=== PATIENT | female | born 1975 | race African-American/Black ===

== ENCOUNTER 2017-04-24 15:44 | Observation (INO) ==
[2017-04-24] MEDS ORDERED: SODIUM CHLORIDE 0.9% 250 ML IV PRN (16:31)
[2017-04-24 17:03] LABS: Basophils # 0.1 10*3/uL (0.0-0.2); Basophils % 0.8 % (0.0-0.8); Eosinophils # 0.1 10*3/uL (0.0-0.87); Eosinophils % 1.2 % (0.00-10.9); Hematocrit 22.9 VOL% (35.7-47.0); Immature Granulocytes % 0.5 %; Immature Granulocytes Absolute 0.04 #; Lymphocytes # 2.6 10*3/uL (1.4-4.0); Lymphocytes % 29.9 % (21.3-54.2); Mean Corpuscular HGB Conc 27.9 GM/DL (32-36); Mean Corpuscular Hemoglobin 20 PG (27-34); Mean Corpuscular Volume 71.8 FL (87-102); Mean Platelet Volume 11.6 FL (9.6-12.0); Monocytes # 0.4 10*3/uL (0.11-0.8); Monocytes % 5.1 % (1.7-12.7); Neutrophils # 5.4 10*3/uL (1.4-7.4); Neutrophils % 62.5 % (38.7-73.9); Platelet Count 448 T/CUMM (130-400); Red Blood Count 3.19 MC/CUMM (3.8-5.5); Red Cell Distribution Width 18.8 % (9.3-17.3); White Blood Count 8.7 T/CUMM (4-12)
[2017-04-24 17:09] LABS: Hemoglobin 6.4 GM/DL (12.0-16.0)
[2017-04-24] MEDS ORDERED: INFLUENZA VIRUS VACCINE 0.5 ML SYRINGE IM ONE (17:11)
[2017-04-24 17:21] LABS: Alanine Aminotransferase 19 U/L (13-56); Albumin 3.5 G/DL (3.4-5.0); Alkaline Phosphatase 76 U/L (45-117); Aspartate Amino Transferase 16 U/L (0-37); Bilirubin,Total < 0.39 MG/DL (0.2-1.0); Blood Urea Nitrogen 8 MG/DL (7-18); Calcium 8.8 MG/DL (8.5-10.1); Glucose 119 MG/DL (74-106); Osmolality,Calculated 279.3 MOS/KG (273-304); Sodium 141 MMOL/L (136-145)
[2017-04-24] MEDS: SODIUM CHLORIDE 0.9% 1,000 ML IV SCH (17:25)
[2017-04-24] MEDS ORDERED: DEXTROSE 5% LACTATED RINGERS 1,000 ML IV SCH (21:00)
[2017-04-25 04:11] LABS: Basophils # 0.1 10*3/uL (0.0-0.2); Basophils % 0.9 % (0.0-0.8); Eosinophils # 0.1 10*3/uL (0.0-0.87); Eosinophils % 1.5 % (0.00-10.9); Hematocrit 27.2 VOL% (35.7-47.0); Hemoglobin 8.2 GM/DL (12.0-16.0); Immature Granulocytes % 0.3 %; Immature Granulocytes Absolute 0.03 #; Lymphocytes # 3.2 10*3/uL (1.4-4.0); Lymphocytes % 33.8 % (21.3-54.2); Mean Corpuscular HGB Conc 30.1 GM/DL (32-36); Mean Corpuscular Hemoglobin 23 PG (27-34); Mean Corpuscular Volume 76.2 FL (87-102); Mean Platelet Volume 11.6 FL (9.6-12.0); Monocytes # 0.6 10*3/uL (0.11-0.8); Monocytes % 6.1 % (1.7-12.7); Neutrophils # 5.4 10*3/uL (1.4-7.4); Neutrophils % 57.4 % (38.7-73.9); Platelet Count 385 T/CUMM (130-400); Red Blood Count 3.57 MC/CUMM (3.8-5.5); Red Cell Distribution Width 18.3 % (9.3-17.3); White Blood Count 9.4 T/CUMM (4-12)
[2017-04-25] MEDS: SODIUM CHLORIDE 0.9% 1,000 ML IV SCH (05:33)
--- NOTE | 2017-04-25 06:31 | History and Physical Update ---
History and Physical Update - History and Physical H&P was reviewed, the patient examined and there: are no changes in the patients condition since last H&P was completed. - Dictation Physical: refer to scanned H&P - Physical Exam Mental Status: alert and oriented Heart: regular rate and rhythm Lung: clear to auscultation Abdomen: within normal limits Vitals: within normal limits
[2017-04-25] MEDS ORDERED: TISSUE ADHESIVE 1 EACH APPLICATOR TOP ONE (06:38)
[2017-04-25] MEDS: LACTATED RINGERS 1,000 ML IV SCH ×3 (07:22→17:15)
[2017-04-25] MEDS ORDERED: GLYCOPYRROLATE 0.4 MG/2 ML VIAL ONE (07:24)
[2017-04-25] MEDS ORDERED: NEOSTIGMINE 10 MG/10 ML VIAL ONE (07:24)
[2017-04-25] MEDS ORDERED: ROCURONIUM 100 MG/10 ML VIAL IV ONE (07:24)
[2017-04-25] MEDS ORDERED: DEXAMETHASONE 10 MG/1 ML VIAL ONE (07:24)
[2017-04-25] MEDS ORDERED: ONDANSETRON 4 MG/2 ML VIAL ONE (07:24)
[2017-04-25] MEDS ORDERED: LIDOCAINE 2% 5 ML VIAL ONE (07:24)
[2017-04-25] MEDS ORDERED: PROPOFOL 200 MG/20 ML VIAL IV ONE (07:24)
[2017-04-25] MEDS ORDERED: METOPROLOL TARTRATE 5 MG/5 ML VIAL IV ONE (07:24)
[2017-04-25] MEDS ORDERED: SUCCINYLCHOLINE 200 MG/10 ML VIAL ONE (07:24)
[2017-04-25] MEDS ORDERED: FAMOTIDINE 20 MG/2 ML VIAL IV ONE (07:31)
[2017-04-25] MEDS: FERROUS SULFATE 325 MG TABLET PO SCH ×2 (09:00→19:45)
[2017-04-25] MEDS ORDERED: GABAPENTIN 300 MG CAPSULE PO SCH (09:00)
[2017-04-25 09:33] LABS: Apearance,Urine CLEAR (Clear); Bilirubin,Urine Negative (Negative); Blood, Urine Negative (Negative); Glucose,Urine (UA) Negative (Negative); Ketones,Urine Negative (Negative); Mucus,Urine Occasional /LPF (Occasional); Nitrite,Urine Negative (Negative); Protein,Urine Negative; RBC,Urine 1 /HPF (0-4); Squamous Epithelial Cell,Urine Occasional /HPF (0-10); Urine Color Yellow (Yellow); Urine Urobilinogen < 2.0 EU/DL (0.2-1.0); WBC,Urine 1 /HPF (0-6)
[2017-04-25] MEDS ORDERED: BISACODYL 10 MG SUPP RECTAL PRN (09:48)
[2017-04-25] MEDS ORDERED: BENZOCAINE/MENTHOL LOZENGE 18/BOX PO PRN (09:48)
[2017-04-25] MEDS ORDERED: ACETAMINOPHEN 325 MG TABLET PO PRN (09:48)
[2017-04-25] MEDS ORDERED: IBUPROFEN 800 MG TABLET PO PRN (09:48)
[2017-04-25] MEDS ORDERED: MAGNESIUM HYDROXIDE SUSP 30 ML UDCUP PO PRN (09:48)
--- NOTE | 2017-04-25 09:51 | Operative Note ---
Date of procedure: 04/25/17 Pre-op diagnosis: menorrhagia; anemia secondary to blood loss; enlarged uterus Post-op diagnosis: same (+ path pending) Procedure: RAVH, Bilateral salpingectomy After informed consent was obtained the patient was taken to the OR where she was placed in supine position. Gen. anesthetic was administered by members of the anesthesia department. She was then placed in the dorsal lithotomy position [facility]. She was sterilely prepped and draped in usual customary fashion. A Gomez catheter was placed to bedside drainage. A bimanual exam under anesthesia revealed a normal sized uterus with no adnexal masses palpated. A weighted speculum was placed in the posterior vaginal vault. A single-toothed tenaculum was used to grasp the anterior cervix. The uterus was sounded to 8 cm. Stay sutures of 0 Vicryl were placed at the corners of the cervix and held long. Uterine manipulator with the Ranulfo ring was placed without difficulty. Attention was then drawn to the abdomen. A 8 mm incision was made in the supraumbilical region. Veress needle was passed through the incision without difficulty. Placement was assured by the hanging drop technique. Approximately 3 L of carbon dioxide gas was used to insufflate the abdomen. The Veress needle was then removed. The 8 mm trocar and sheath were placed without difficulty. Laparoscope was placed and pelvic contents were visualized. Incisions were made in the lateral areas of the upper abdomen. 8 mm trochars were passed through these incisions under direct visualization without difficulty. A 5 mm port was passed under direct visualization in the left upper quadrant. The da Marin was then attached to the ports in the typical fashion. I then turned my attention to the da Marin console. Manipulation of the pelvic contents revealed an enlarged uterus with no adnexal abnormalities noted. The left round ligament was identified and was cauterized in midportion. It was cut and the bladder flap was created from this side. The peritoneal dissection was carried across the broad ligament with cauterization of the large vessels as they were encountered. Attention was then drawn to left utero- ovarian ligament. It was cauterized and then cut and dissection was carried down the broad ligament to the distal cervix on the left side. Similar procedures were repeated on the patient's right side. The meso salpinx was cauterized and cut on each side with removal of the bilateral fallopian tubes with care to avoid injury to the IP ligaments. A posterior colpotomy was performed across the Ranulfo ring with electrocautery in the typical fashion. We had a difficult time maintaining retraction of the bowel out of the cul de sac so I decided to proceed vaginally. The instruments were removed from the abdomen. Attention was then drawn to the vaginal area. The cervix was grasped with a Geo thyroid clamp after the other devices were removed. A long weighted speculum was placed in the posterior culdesac. Electrocautery was used to extend the colpotomy anteriorly. The vaginal tissue was dissected away from the underlying tissue with retraction of the bladder away from the operative field. Zachariah clamp was placed across the uterosacral ligament, tissue was cut and the tissue was ligated with 0-Vicryl suture. This suture was held long. Similar procedure was repeat on the opposite side. Continued dissection was performed with care to avoid injury to the bladder, bowel and pelvic sidewalls. Once dissection was complete, the uterus was cored to assist removal. Tissue was sent to pathology. The operative sites were noted to be hemostatic. Peritoneum was closed in a pursestring fashion with a modified Drake's procedure performed. Vaginal mucosa was then approximated with a running interlocking stitch of 0-Vicryl . Once assurring adequate closure, the vault was cleared of remaining blood and clots. Attention was then drawn back to the abdomen. Laparoscope was placed. Irrigation with normal saline was then performed. There was no evidence of bleeding of the surgical sites. The instruments and ports were removed. The wounds were closed with interrupted stitches of 4 Vicryl with good approximation and hemostasis. The sites were cleansed and dressed in the customary fashion. The patient tolerated the procedure well and was transferred to recovery in stable condition. Anesthesia: GETA Surgeon / Physician: Melva Santiago Estimated blood loss: other (100cc) Specimens: other (uterus, cervix, bilateral Fallopian tubes to path) Condition: stable Disposition: PACU Results - Labs CBC & BMP: 04/26/17 06:18 04/24/17 16:45 Discharge Plan - Discharge Data Disposition: Disch To Home/Self Care - Discharge Medications No Action Gabapentin 1 capsule PO TID PRN PRN Reason: Pain Mild To Moderate (1-7) Ferrous Sulfate Tab [Feosol Original Tab] 325 mg PO BID HydrOXYzine PAMOATE CAP [Vistaril Cap] 25 mg PO BID PRN PRN Reason: Anxiety medroxyPROGESTERone TAB [Provera] 10 mg PO DAILY Potassium Chloride Cap/Tab [K Dur] 10 meq PO DAILY Meloxicam 15 mg PO DAILY PRN PRN Reason: Leg Cramps Nebivolol [Bystolic] 5 mg PO DAILY Clorazepate [Tranxene] 3.75 mg PO BID PRN PRN Reason: Anxiety Levomilnacipran HCl [Fetzima] 80 mg PO DAILY Tranexamic Acid 650 mg PO TID HYDROcodone/ACETAMIN 7.5-325 [[place] 7.5-325] 1 tablet PO Q6H PRN PRN Reason: Pain Mild To Moderate (1-7) Cyclobenzaprine [Flexeril] 10 mg PO TID PRN PRN Reason: Spasms - Follow Up or Referral Follow Up: Melva Santiago DO [Physician] - 05/02/17 1:00 pm (1 week ) - Forms/Instructions Instructions: Ibuprofen (By mouth), Oxycodone/Acetaminophen (By mouth), Laparoscopic Salpingo-oophorectomy (DC), Robot Assisted Laparoscopic Hysterectomy (DC)
--- NOTE | 2017-04-25 10:20 | Anesthesia Post-Op ---
Anesthesia Post OP - Post Ansesthetic Evaluation Patient seen in post op: Yes Resp: within normal limits CV: within normal limits Mental: within normal limits Temp: within normal limits [id number]: within normal limits Nausea and Vomiting: within normal limits Pain: within normal limits
[2017-04-25] MEDS ORDERED: HYDROmorphone 2 MG/1 ML VIAL IV PRN (10:46)
[2017-04-25] MEDS ORDERED: ONDANSETRON 4 MG/2 ML VIAL IV PRN (10:46)
[2017-04-25] MEDS ORDERED: MIDAZOLAM 2 MG/2 ML VIAL ONE (11:35)
[2017-04-25] MEDS ORDERED: ACETAMINOPHEN 1,000 MG/100 ML VIAL IV ONE (11:35)
[2017-04-25] MEDS ORDERED: SODIUM CHLORIDE 0.9% 100 ML IV ONE (11:35)
[2017-04-25] MEDS ORDERED: SUFentanil 50 MCG/ML AMP ONE (11:35)
[2017-04-25] MEDS: ONDANSETRON 4 MG/2 ML VIAL IV PRN ×2 (14:18→18:20)
[2017-04-25] MEDS: HYDROmorphone 2 MG/1 ML VIAL IV PRN ×2 (14:21→18:20)
[2017-04-25] MEDS: METOPROLOL SUCCINATE XL 50 MG TABLET PO SCH (14:42)
[2017-04-25] MEDS: DOCUSATE SODIUM 100 MG CAPSULE PO PRN (19:45)
[2017-04-26] MEDS: LACTATED RINGERS 1,000 ML IV SCH (00:01)
[2017-04-26 06:49] LABS: Basophils % 0.1 % (0.0-0.8); Hemoglobin 8.9 GM/DL (12.0-16.0); Immature Granulocytes % 0.5 %; Immature Granulocytes Absolute 0.08 #; Lymphocytes # 1.6 10*3/uL (1.4-4.0); Lymphocytes % 10.3 % (21.3-54.2); Mean Corpuscular HGB Conc 31.8 GM/DL (32-36); Mean Corpuscular Hemoglobin 25 PG (27-34); Mean Corpuscular Volume 77.1 FL (87-102); Mean Platelet Volume 11.7 FL (9.6-12.0); Monocytes # 0.6 10*3/uL (0.11-0.8); Monocytes % 4.1 % (1.7-12.7); Neutrophils # 13.4 10*3/uL (1.4-7.4); Platelet Count 389 T/CUMM (130-400); Red Blood Count 3.63 MC/CUMM (3.8-5.5); Red Cell Distribution Width 18.8 % (9.3-17.3); White Blood Count 15.7 T/CUMM (4-12)
[2017-04-26 07:14] VITALS: BP 128/80
[2017-04-26] MEDS: DOCUSATE SODIUM 100 MG CAPSULE PO PRN (08:33)
[2017-04-26] MEDS: METOPROLOL SUCCINATE XL 50 MG TABLET PO SCH (08:33)
[2017-04-26] MEDS: FERROUS SULFATE 325 MG TABLET PO SCH (08:33)
--- NOTE | 2017-04-27 13:16 | Pathology Report from [facility] ---
[facility] [place] [id number] PATIENT NAME : Kelby Covarrubias ORDERING DR : ALMA HERBERT DO CLINICAL HX: Menorrhagia w/irregular cycles POST-OP DX: Same SPECIMEN INFO: Uterus, cervix, fallopian tubes GROSS DESCRIPTION: The specimen is received in formalin labeled with the patients name KELBY COVARRUBIAS and consists of a uterus and cervix in two parts that weigh 289 grams and together measuring 14.5 x 9.0 cm x up to 6.2 cm. The serosa is erythematous, reinoso and appears to be free of adhesions. The cervix is 4.3 x 4.9 cm. The external cervix is 1.4 cm. The endocervical canal is patent. The endometrial cavity is hemorrhagic, shaggy and thickened with a thickness of up to 0.4 cm. Received separately in the container are two fallopian tube segments. One fallopian tube is fimbriated. The serosa is red- reinoso and measures 2.8 x 0.5 cm. There is a 0.1 cm paratubal cyst present. The second fallopian tube is fimbriated and measures 0.8 x 0.5 cm. There is an attached 0.6 cm fluid filled paratubal cyst present. Sections submitted: A and B cervix, C and D endomyometrium, E posterior uterine serosa, F the first fallopian tube bisected including attached paratubal cyst, G bisected second fallopian tube and paratubal cyst. The cervix is submitted entirely: 12-3 oclock margin in cassettes H thru K, 3-6 oclock margin in cassettes L thru N, the 6-9 oclock quadrant in cassettes O thru S, and the 9-12 oclock quadrant in cassettes T thru Z with a extra cervical tissue sectioned which is not oriented submitted in cassette Z. [place]04[place]26/[place] [place] DIAGNOSIS FOR KELBY COVARRUBIAS: UTERUS, CERVIX, FALLOPIAN TUBES (TOTAL ABDOMINAL HYSTERECTOMY, BILATERAL SALPINGO-OOPHORECTOMY): Focal low grade squamous intraepithelial lesion (mild dysplasia) with squamous metaplasia, completely excised. Acute and chronic endocervicitis, Nabothian cysts. Secretory endometrium. Adenomyosis. Benign fallopian tubes, paratubal cysts. COLLECTED DATE: 04/25/2017 [facility] REPORT DATE: 04/27/2017 ELECTRONICALLY SIGNED BY: Irene Solis M.D. 04/27/2017 - 9:18:56 MTDD
== END 2017-04-26 11:40 | disposition home or self-care (01) ==
LOC: INTOOBSV 15:54 → N.OB 15:54
PROVIDERS: ADMIT Obstetrics & Gynecology; ATTEND Obstetrics & Gynecology